=== PATIENT | male | born 1965 | race Caucasian/White ===

== ENCOUNTER → 2018-03-14 11:02 | Outpatient (CLI) | payer BC | END | disposition home or self-care (01) | LOC: D.US 11:00 | DX: M79.605 Pain in left leg (principal); V89.2XXA Person injured in unspecified motor-vehicle accident, traffic, initial encounter; Y93.9 Activity, unspecified; Y92.9 Unspecified place or not applicable ==

== ENCOUNTER → 2018-03-17 15:30 | Outpatient (CLI) | payer BC | END | disposition home or self-care (01) | LOC: D.MRI 15:30 | DX: S80.10XA Contusion of unspecified lower leg, initial encounter (principal); X58.XXXA Exposure to other specified factors, initial encounter ==

== ENCOUNTER → 2018-03-18 11:48 | Outpatient (CLI) | payer BC | END | disposition home or self-care (01) | LOC: D.MRI 11:48 | DX: R93.8 Abnormal findings on diagnostic imaging of other specified body structures (principal) ==